=== PATIENT | male | born 1945 | race Caucasian/White ===

== ENCOUNTER 2022-02-08 12:58 | Emergency (ER) | payer OTHER ==
--- OUTSIDE RECORDS SUMMARY | 2022-02-08 13:01 | XMS REPORT | Continuity of Care Document ---
:1945 Author Organization [facility] t Address [address] [place] [id number] Care Team Providers Name Role Phone Elda ISBELL Attending Clinician Unavailable Lab, Fam Pob I Attending Clinician Unavailable Ebrapetra LÓPEZP Attending Clinician EBRAHIM Attending Clinician Unavailable Payers Payer Name Policy Type Policy Number Effective Date Expiration Date S rosa [facility] [id number] 2020 MEDICARE ADV HMO 00:00:00 [employer] MEDICARE ERS [id number] 2018 00:00:00 Problems This patient has no known problems. Allergies, Adverse Reactions, Alerts Allergy Allergy Status Severity Reaction(s) Onset Inactive Treating Comm ents Source Name Type Date Date Clinician NO KNOWN Drug Active Univers ALLERGIE Class ity of [facility] Social History Social Habit Start Date Stop Date Quantity Comments Source [facility] [place] [facility] Exposure to Yes [facility] SARS-CoV-2 [facility] (event) Branch Tobacco use and 2018-11-11 2018-11-11 Never used Universit y of exposure 00:00:00 00:00:00 [facility] Alcohol intake 2018-11-11 2018-11-11 Current University 00:00:00 00:00:00 non-drinker of [facility] alcohol Branch (finding) Smoking Status Start Date Stop Date Source Never smoker [facility] Medications Ordered Filled Start Stop Current Ordering Indication Dosage Frequency Signature Comments Components Source Medication Medication Date Date Medication? Clinician (SIG) Name Name losartan-hy Yes 1{tbl} Take 1 Un giuliana drochloroth 1-31 tablet by ity of iazide 16:12: mouth [place] 100-25 mg 47 daily. Medical per tablet Branch bisoprolol- Yes 1{tbl} Take 1 Un giuliana hydrochloro 1-31 tablet by ity of thiazide 16:12: mouth [place] 2.5-6.25 mg 47 daily. Medica l per tablet Branch pravastatin 2019-0 Yes 20mg Take 20 mg Univers 20 mg 1-31 by mouth ity of tablet 16:12: at [place] [address] bedtime. [facility] febuxostat 2019-0 Yes 40mg Take 40 mg U nivers 40 mg 1-31 by mouth ity of tablet 16:12: daily. [address] coenzyme 2019-0 Yes 100mg Take 100 Univ ers Q10 (CO 1-31 mg by ity of Q-10) 100 16:12: mouth. [facility] softgel [address] [place] [address] aspirin 81 2019-0 Yes 81mg Take 81 mg U nivers mg EC 1-31 by mouth ity of tablet 16:12: daily. [address] Procedures This patient has no known procedures. Encounters Start End Encounter Admission Attending Care Care Encounter Source Date/Time Date/Time Type Type Clinicians Facility Department ID 2020-11-27 2020-11-27 [id number] Univers 15:30:00 15:30:00 ESTHER [id number] [facility] 2020-11-27 2020-11-27 [facility] [id number] Univers 15:30:00 15:30:00 ESTHER [facility] 2020-11-05 2020-11-05 Outpatient Arthur ISBELL [facility] [id number] Univers 15:40:00 15:40:00 ESTHER [id number] [facility] 2020-11-05 2020-11-05 [facility] [id number] Univers 15:40:00 15:40:00 ESTHER [facility] 2020-08-25 2020-08-25 Laboratory Lab, Adc Fam Pob I [facility] [id number] Univers 08:04:20 08:24:20 Only Cristian [facility] [id number] ity [facility] [id number] Donald as Brittany [id number] Md dical [facility] [address] 2020-08-25 2020-08-25 Outpatient Arthur DAVIS [facility] [id number] Univers 08:00:00 08:00:00 LUDWIG babcock [facility] Results This patient has no known results.
[2022-02-08 14:34] LABS: Absolute Lymphocytes (CBC) 1.3 K/uL (0.7-4.9); Hematocrit 42.8 % (39.6-49.0); Lymphocytes % 16.3 % (15.3-44.8); MPV 9.6 fL (7.6-11.3); RBC Red Blood Cell Count 4.64 M/uL (4.33-5.43)
[2022-02-08 14:46] LABS: Potassium 3.7 mmol/L (3.5-5.1)
--- NOTE | 2022-02-08 15:56 | RAD REPORT ---
EXAM DESCRIPTION: CT - Head Brain Wo Cont - 02/08/2022 3:47 pm CLINICAL HISTORY: paresthesia right hand Headache, drowsiness, CVA symptomology COMPARISON: Head Brain Wo Cont dated 06/07/2017 TECHNIQUE: All CT scans are performed using dose optimization technique as appropriate and may inclu de automated exposure control or mA/KV adjustment according to patient size. FINDINGS: No intracranial hemorrhage, hydrocephalus or extra-axial fluid collection.No areas of brai n edema or evidence of midline shift. The paranasal sinuses and mastoids are clear. The calvarium is intact. IMPRESSION: No acute intracranial abnormality.
--- NOTE | 2022-02-08 15:59 | RAD REPORT ---
EXAM DESCRIPTION: CT - Head angio - 02/08/2022 3:47 pm CLINICAL HISTORY: Paresthesia right hand Headache, drowsiness COMPARISON: Head Brain Wo Cont dated 02/08/2022; Head Brain Wo Cont dated 06/07/2017 TECHNIQUE: CT angiography of the head was performed with MIPs. All CT scans are performed using dose optimization technique as appropriate and may include automated exposure control or mA/KV adjustment according to patient size. FINDINGS: No evidence of aneurysm is detected. No flow-limiting stenosis or vascular malformation id entified. Antegrade flow is seen in the vertebral arteries. The vertebral arteries are right-sided dominant. The visualized dural venous sinuses are patent. IMPRESSION: No significant flow abnormality is detected.
--- NOTE | 2022-02-08 17:30 | RAD REPORT ---
EXAM DESCRIPTION: MRI - Brain W/Wo Cont - 02/08/2022 5:16 pm CLINICAL HISTORY: numbness and tingling Headache, drowsiness, CVA symptomology COMPARISON: Head angio dated 02/08/2022 TECHNIQUE: Multi-sequence, multiplanar MR imaging of the brain was performed with contrast. FINDINGS: No intracranial hemorrhage, hydrocephalus, or extra-axial fluid collection. No edema or sh ift of midline structures. No intracranial mass. DWI is negative for acute CVA. The midline structures are normally formed. Mastoid air cells and paranasal sinuses are clear. Post-contrast images show no abnormal enhancement to suggest tumor or infection. IMPRESSION: Negative for acute CVA or other acute intracranial process. No pathologic post-contrast enhancement suspected.
--- NOTE | 2022-02-08 18:40 | EDPHYS ---
Physician Documentation [facility] Name: Darci Pitt Age: 76 yrs Sex: Male : 1945 Arrival Date: 02/08/2022 Time: 13:00 Bed 6 Private MD: ED Physician Franc Serrano HPI: 02/08 19:08 This 76 yrs old Male presents to ER via EMS with complaints of Numbness Of Arm. kdr 19:08 . kdr 19:10 Around 1230 today, the patient noted that his right hand was numb primarily his kdr fingertips. Also reported similar sensation in his toes on the right side however that seems to resolved prior to arrival. He has not had this before and does not appear acutely toxic in any way his speech and mentation are at baseline with his at bedside. Patient otherwise does not appear acutely toxic. Onset: The symptoms/episode began/occurred acutely, suddenly, just prior to arrival, this morning. Severity of symptoms: At their worst the symptoms were very mild in the emergency department the symptoms have resolved. The patient has not experienced similar symptoms in the past. The patient has not recently seen a physician. Historical: - Allergies: 13:02 NKDA; ab2 - PMHx: 13:02 Gout; Hypertension; Tachycardia; ab2 - Immunization history:: Adult Immunizations up to date. - Social history:: Smoking status: Patient denies any tobacco usage or history of. ROS: 19:10 Constitutional: Negative for fever, chills, and weight loss, Eyes: Negative for injury, kdr pain, redness, and discharge, ENT: Negative for injury, pain, and discharge, Neck: Negative for injury, pain, and swelling, Cardiovascular: Negative for chest pain, palpitations, and edema, Respiratory: Negative for shortness of breath, cough, wheezing, and pleuritic chest pain, Abdomen/GI: Negative for abdominal pain, nausea, vomiting, diarrhea, and constipation, Back: Negative for injury and pain, : Negative for injury, bleeding, discharge, and swelling, MS/Extremity: Negative for injury and deformity, Skin: Negative for injury, rash, and discoloration, Psych: Negative for depression, anxiety, suicide ideation, homicidal ideation, and hallucinations, Allergy/Immunology: Negative for hives, rash, and allergies, Endocrine: Negative for neck swelling, polydipsia, polyuria, polyphagia, and marked weight changes, Hematologic/Lymphatic: Negative for swollen nodes, abnormal bleeding, and unusual bruising. 19:10 Neuro: Positive for numbness, Negative for altered mental status, dizziness, gait disturbance, headache, hearing loss, loss of consciousness, seizure activity, speech changes, syncope, near syncope, tingling, tinnitus, tremor, visual changes, weakness, acute changes. Exam: 19:10 Constitutional: This is a well developed, well nourished patient who is awake, alert, kdr and in no acute distress. Head/Face: Normocephalic, atraumatic. Eyes: Pupils equal round and reactive to light, extra-ocular motions intact. Lids and lashes normal. Conjunctiva and sclera are non-icteric and not injected. Cornea within normal limits. Periorbital areas with no swelling, redness, or edema. Neck: Trachea midline, no thyromegaly or masses palpated, and no cervical lymphadenopathy. Supple, full range of motion without nuchal rigidity, or vertebral point tenderness. No Meningismus. Chest/axilla: Normal chest wall appearance and motion. Nontender with no deformity. No lesions are appreciated. Cardiovascular: Regular rate and rhythm with a normal S1 and S2. No gallops, murmurs, or rubs. Normal PMI, no JVD. No pulse deficits. Respiratory: Lungs have equal breath sounds bilaterally, clear to auscultation and percussion. No rales, rhonchi or wheezes noted. No increased work of breathing, no retractions or nasal flaring. Abdomen/GI: Soft, non-tender, with normal bowel sounds. No distension or tympany. No guarding or rebound. No evidence of tenderness throughout. Back: No spinal tenderness. No costovertebral tenderness. Full range of motion. Skin: Warm, dry with normal turgor. Normal color with no rashes, no lesions, and no evidence of cellulitis. MS/ Extremity: Pulses equal, no cyanosis. Neurovascular intact. Full, normal range of motion. Neuro: Awake and alert, GCS 15, oriented to person, place, time, and situation. Cranial nerves II-XII grossly intact. Motor strength 5/5 in all extremities. Sensory grossly intact. Cerebellar exam normal. Normal gait. Psych: Awake, alert, with orientation to person, place and time. Behavior, mood, and affect are within normal limits. Vital Signs: 13:00 BP 174 / 90; Pulse 62; Resp 17; Temp 98.7; Pulse Ox 99% on R/A; Weight 88.45 kg; Height ab2 5 ft. 10 in. (177.80 cm); 14:00 BP 153 / 84; Pulse 59; Resp 15 S; Pulse Ox 98% on R/A; jd3 14:49 BP 165 / 88; Pulse 60; Resp 17; Pulse Ox 99% on R/A; ab2 15:09 BP 137 / 78; Pulse 118; Resp 16 S; Pulse Ox 98% on R/A; jd3 15:56 BP 164 / 91; Pulse 67; Resp 16 S; Pulse Ox 98% on R/A; jd3 17:24 BP 166 / 96; Pulse 69; Resp 17; Pulse Ox 99% on R/A; Pain 0/10; ab2 18:00 BP 161 / 95; Pulse 74; Resp 18 S; Pulse Ox 98% on R/A; jd3 19:12 BP 165 / 99; Pulse 73; Resp 17; Pulse Ox 98% on R/A; ab2 13:00 Body Mass Index 27.98 (88.45 kg, 177.80 cm) ab2 NIH Stroke Scale Scores: 13:04 NIHSS Score: 0 ab2 MDM: 18:40 Patient medically screened. kdr 19:10 Data reviewed: vital signs, nurses notes, lab test result(s), radiologic studies. kdr Counseling: I had a detailed discussion with the patient and/or guardian regarding: the historical points, exam findings, and any diagnostic results supporting the discharge/admit diagnosis, lab results, radiology results, the need for outpatient follow up. 02/08 14:19 Order name: CBC with Diff; Complete Time: 17:24 kdr 02/08 14:19 Order name: Chem 7; Complete Time: 17:24 kdr 02/08 14:19 Order name: CT Head Angio; Complete Time: 17:24 kdr 02/08 14:19 Order name: CT Head Brain wo Cont; Complete Time: 17:24 kdr 02/08 15:38 Order name: Brain W/Wo Cont; Complete Time: 18:12 EDMS Administered Medications: No medications were administered Disposition Summary: 02/08/22 18:40 Discharge Ordered Location: Home kdr Problem: new kdr Symptoms: have improved kdr Condition: Stable kdr Diagnosis - Paresthesia of skin kdr Followup: kdr - With: Private Physician - When: 2 - 3 days - Reason: If symptoms return, Further diagnostic work-up, Recheck today's complaints, Continuance of care, Re-evaluation by your physician Discharge Instructions: - Discharge Summary Sheet kdr - Peripheral Neuropathy kdr - Paresthesia, [id number] kdr Forms: - Medication Reconciliation Form kdr - Thank You Letter kdr NIH Stroke Scale - NIH Stroke Score Date: 02/08/2022 Time: 13:04 Total Score = 0 1a. Level of Consciousness (LOC) - 0(Alert) 1b. Level of Consciousness (LOC) (Month \T\ Age) - 0(Both) 1c. LOC Commands (Open \T\ Closes Eyes/Lab Support Technician) - 0(Both) 2. Best Gaze (Lateral Gaze Paresis) - 0(Normal) 3. Visual Field Loss - 0(No visual loss) 4. Facial Palsy - 0(Normal) 5a. Left Arm: Motor (10-second hold) - 0(No drift) 5b. Right Arm: Motor (10-second hold) - 0(No drift) 6a. Left Leg: Motor (5-second hold - always test supine) - 0(No drift) 6b. Right Leg: Motor (5-second hold - always test supine) - 0(No drift) 7. Limb Ataxia (finger/nose \T\ heel/aug[place]in - test with eyes open) - 0(Absent) 8. Sensory Loss (pinprick arms/legs/face) - 0(Normal) 9. Best Language: Aphasia (description/naming/reading) - 0(No aphasia) 10. Dysarthria (speech clarity - read or repeat words) - 0(Normal) 11. Extinction and Inattention (visual/tactile/auditory/spatial/personal) - 0(No abnormality) Initials: ab2 Signatures: Dispatcher [employer] Franc Enriquez MD MD kdr Bernardino Vance2
--- NOTE | 2022-02-08 18:40 | ER ---
Nurse's Notes [facility] Name: Darci Pitt Age: 76 yrs Sex: Male : 1945 Arrival Date: 02/08/2022 Time: 13:00 Bed 6 Private MD: Diagnosis: Paresthesia of skin Presentation: 02/08 13:00 Chief complaint: Patient states: "around 1230 my right hand went numb and was ab2 tingling." Pt states this sensation has since resolved. Pt has no deficits noted. Coronavirus screen: Vaccine status: Patient reports receiving the 2nd dose of the covid vaccine. Client denies travel out of the [place] in the last 14 days. At this time, the client does not indicate any symptoms associated with coronavirus-19. Ebola Screen: Patient negative for fever greater than or equal to 101.5 degrees Fahrenheit, and additional compatible Ebola Virus Disease symptoms Patient denies exposure to infectious person. Patient denies travel to an Ebola-affected area in the 21 days before illness onset. No symptoms or risks identified at this time. Initial Sepsis Screen: Does the patient meet any 2 criteria? No. Patient's initial sepsis screen is negative. Does the patient have a suspected source of infection? No. Patient's initial sepsis screen is negative. Risk Assessment: Do you want to hurt yourself or someone else? Patient reports no desire to harm self or others. Onset of symptoms was February 08, 2022 at 12:30. 13:00 Method Of Arrival: EMS: [facility] ab2 13:00 Acuity: ROXIE 3 ab2 Historical: - Allergies: 13:02 NKDA; ab2 - PMHx: 13:02 Gout; Hypertension; Tachycardia; ab2 - Immunization history:: Adult Immunizations up to date. - Social history:: Smoking status: Patient denies any tobacco usage or history of. Screenin:04 Abuse screen: Denies threats or abuse. Denies injuries from another. Nutritional ab2 screening: No deficits noted. Tuberculosis screening: No symptoms or risk factors identified. Fall Risk None identified. Assessment: 13:02 General: Appears in no apparent distress. comfortable, Behavior is calm, cooperative, ab2 appropriate for age. Pain: Denies pain. Neuro: Reports numbness in right hand. Cardiovascular: No deficits noted. Denies chest pain, shortness of breath, Heart tones S1 S2 present Patient's skin is warm and dry. Respiratory: No deficits noted. Airway is patent Respiratory effort is even, unlabored, Respiratory pattern is regular, symmetrical, Breath sounds are clear bilaterally. GI: No deficits noted. No signs and/or symptoms were reported involving the gastrointestinal system. : No deficits noted. Derm: No signs and/or symptoms reported regarding the dermatologic system. Skin is intact, is healthy with good turgor, Skin is pink, warm \\T\\ dry. 13:03 Reassessment: Patient appears in no apparent distress at this time. No changes from ab2 previously documented assessment. Dr. Serrano notified of patients right hand numbness that has since resolve and I was directed to not call a stroke alert. 14:00 Reassessment: Patient appears in no apparent distress at this time. No changes from jd3 previously documented assessment. Patient and/or family updated on plan of care and expected duration. Pain level reassessed. Patient is alert, oriented x 3, equal unlabored respirations, skin warm/dry/pink. 15:08 Reassessment: Patient appears in no apparent distress at this time. Patient and/or jd3 family updated on plan of care and expected duration. Pain level reassessed. Patient is alert, oriented x 3, equal unlabored respirations, skin warm/dry/pink. awaiting results. 15:55 Reassessment: Patient appears in no apparent distress at this time. Patient and/or jd3 family updated on plan of care and expected duration. Pain level reassessed. Patient is alert, oriented x 3, equal unlabored respirations, skin warm/dry/pink. 17:24 Reassessment: Patient appears in no apparent distress at this time. Pt returned from ab2 MRI. Pt resting in bed at this time. at bedside. Pt denies any needs at this time. Vital signs remain stable at this time. 18:00 Reassessment: Patient appears in no apparent distress at this time. No changes from jd3 previously documented assessment. Patient and/or family updated on plan of care and expected duration. Pain level reassessed. Patient is alert, oriented x 3, equal unlabored respirations, skin warm/dry/pink. Vital Signs: 13:00 BP 174 / 90; Pulse 62; Resp 17; Temp 98.7; Pulse Ox 99% on R/A; Weight 88.45 kg; Height ab2 5 ft. 10 in. (177.80 cm); 14:00 BP 153 / 84; Pulse 59; Resp 15 S; Pulse Ox 98% on R/A; jd3 14:49 BP 165 / 88; Pulse 60; Resp 17; Pulse Ox 99% on R/A; ab2 15:09 BP 137 / 78; Pulse 118; Resp 16 S; Pulse Ox 98% on R/A; jd3 15:56 BP 164 / 91; Pulse 67; Resp 16 S; Pulse Ox 98% on R/A; jd3 17:24 BP 166 / 96; Pulse 69; Resp 17; Pulse Ox 99% on R/A; Pain 0/10; ab2 18:00 BP 161 / 95; Pulse 74; Resp 18 S; Pulse Ox 98% on R/A; jd3 19:12 BP 165 / 99; Pulse 73; Resp 17; Pulse Ox 98% on R/A; ab2 13:00 Body Mass Index 27.98 (88.45 kg, 177.80 cm) ab2 NIH Stroke Scale Scores: 13:04 NIHSS Score: 0 ab2 ED Course: 13:00 Patient arrived in ED. ab2 13:02 Triage completed. ab2 13:04 Arm band placed on right wrist. ab2 13:04 Patient has correct armband on for positive identification. Bed in low position. Side ab2 rails up X2. 13:05 Bernardino Vance is Primary Nurse. ab2 13:05 Maintain EMS IV. Dressing intact. Good blood return noted. Site clean \\T\\ dry. Gauge \\T\\ ab 2 site: 18 right forearm. 13:08 Franc Serrano MD is Attending Physician. kdr 14:27 Initial lab(s) drawn, by me, sent to lab. jd3 15:49 CT Head Angio In Process Unspecified. EDMS 15:49 CT Head Brain wo Cont In Process Unspecified. EDMS 17:17 Brain W/Wo Cont In Process Unspecified. EDMS 19:23 No provider procedures requiring assistance completed. IV discontinued, intact, iw bleeding controlled, No redness/swelling at site. Pressure dressing applied. Administered Medications: No medications were administered Outcome: 18:40 Discharge ordered by . kdr 19:23 Discharged to home via wheelchair, with family. iw 19:23 Condition: good 19:23 Discharge instructions given to patient, Instructed on discharge instructions, follow up and referral plans. Demonstrated understanding of instructions, follow-up care. 19:23 Patient left the ED. NIH Stroke Scale - NIH Stroke Score Date: 02/08/2022 Time: 13:04 Total Score = 0 1a. Level of Consciousness (LOC) - 0(Alert) 1b. Level of Consciousness (LOC) (Month \\T\\ Age) - 0(Both) 1c. LOC Commands (Open \\T\\ Closes Eyes/Bilingual Branch Manager) - 0(Both) 2. Best Gaze (Lateral Gaze Paresis) - 0(Normal) 3. Visual Field Loss - 0(No visual loss) 4. Facial Palsy - 0(Normal) 5a. Left Arm: Motor (10-second hold) - 0(No drift) 5b. Right Arm: Motor (10-second hold) - 0(No drift) 6a. Left Leg: Motor (5-second hold - always test supine) - 0(No drift) 6b. Right Leg: Motor (5-second hold - always test supine) - 0(No drift) 7. Limb Ataxia (finger/nose \\T\\ heel/augustin - test with eyes open) - 0(Absent) 8. Sensory Loss (pinprick arms/legs/face) - 0(Normal) 9. Best Language: Aphasia (description/naming/reading) - 0(No aphasia) 10. Dysarthria (speech clarity - read or repeat words) - 0(Normal) 11. Extinction and Inattention (visual/tactile/auditory/spatial/personal) - 0(No abnormality) Initials: ab2 Signatures: Dispatcher [employer] EDOH Franc Serrano MD MD kdr Caprice Manzo RN RN Raul Saldivar RN RN Bernardino Crespo ab2 Corrections: (The following items were deleted from the chart) 14:00 14:00 Reassessment: Patient appears in no apparent distress at this time. No jd3 changes from previously documented assessment. Patient and/or family updated on plan of care and expected duration. Pain level reassessed. Patient is alert, oriented x 3, equal unlabored respirations, skin warm/dry/pink. jd3
[2022-02-08 20:16] VITALS: TEMP 98.7
[2022-02-08 20:24] VITALS: O2SAT 98
[2022-02-08 20:25] VITALS: BP 165/99
[2022-02-08] MEDS ORDERED: NA CHLORIDE 0.9% 1,000 ML ONE (20:35)
[2022-02-08] MEDS ORDERED: ASPIRIN 81 MG CHEWABLE TABLET ONE (20:35)
[2022-02-08] MEDS ORDERED: ONDANSETRON 4 MG/2 ML VIAL ONE (20:35)
== END 2022-02-08 19:23 | disposition home or self-care (01) ==
LOC: ER 12:58
DX: R20.2 Paresthesia of skin (principal); I10 Essential (primary) hypertension
CPT/HCPCS: 85025; 80048; 36415; 70450; 70496; 70553; 99284; Q9967; A9577; J7030; J2405

== ENCOUNTER 2022-02-08 19:39 | Observation (INO) | payer OTHER ==
--- OUTSIDE RECORDS SUMMARY | 2022-02-08 19:41 | XMS REPORT | Continuity of Care Document ---
:1945 Author Organization [facility] t Address [address] [place] [id number] Care Team Providers Name Role Phone Elda ISBELL Attending Clinician Unavailable Lab, Fam Pob I Attending Clinician Unavailable Ebrapetra LÓPEZP Attending Clinician EBRAHIM Attending Clinician Unavailable Payers Payer Name Policy Type Policy Number Effective Date Expiration Date S rosa [facility] [id number] 2020 MEDICARE ADV HMO 00:00:00 [employer] MEDICARE ERS [id number] 2018 00:00:00 Problems This patient has no known problems. Allergies, Adverse Reactions, Alerts Allergy Allergy Status Severity Reaction(s) Onset Inactive Treating Comm ents Source Name Type Date Date Clinician NO KNOWN Drug Active Univers ALLERGIE Class ity of S [facility] Social History Social Habit Start Date Stop Date Quantity Comments [facility] Exposure to Yes [facility] SARS-CoV-2 [facility] (event) Branch Tobacco use and 2018-11-11 2018-11-11 Never used Universit y of exposure 00:00:00 00:00:00 [facility] Alcohol intake 2018-11-11 2018-11-11 Current University 00:00:00 00:00:00 non-drinker of [facility] alcohol Branch (finding) Smoking Status Start Date Stop Date Source Never smoker [facility] Medications Ordered Filled Start Stop Current Ordering [...] by mouth ity of tablet 16:12: at [place] [address] [address] [facility] febuxostat 2019-0 Yes 40mg Take 40 mg U nivers 40 mg 1-31 by mouth ity of tablet 16:12: daily. [address] coenzyme 2019-0 Yes 100mg Take 100 Univ ers Q10 (CO 1-31 mg by ity of Q-10) 100 16:12: mouth. [facility] softgel [address] [place] [address] aspirin 81 2019-0 Yes 81mg Take 81 mg U nivers mg EC 1-31 by mouth ity of tablet 16:12: daily. [address] Procedures This patient has no known procedures. Encounters Start End Encounter Admission Attending Care Care Encounter Source Date/Time Date/Time Type Type Clinicians Facility Department ID 2020-11-27 2020-11-27 [facility] [id number] Univers 15:30:00 15:30:00 ESTHER [id number] [facility] 2020-11-27 2020-11-27 [facility] [id number] Univers 15:30:00 15:30:00 ESTHER [facility] 2020-11-05 2020-11-05 Outpatient Arthur ISBELL [facility] [id number] Univers 15:40:00 15:40:00 ESTHER [id number] [facility] 2020-11-05 2020-11-05 [facility] [id number] Univers 15:40:00 15:40:00 ESTHER [facility] 2020-08-25 2020-08-25 Laboratory Lab, Adc Fam Pob I [facility] [id number] Univers 08:04:20 08:24:20 Only Cristian [facility] [id number] ity [facility] [id number] Donald as Brittany [id number] Co dical [facility] [address] 2020-08-25 2020-08-25 Outpatient Arthur DAVIS [facility] [id number] Univers 08:00:00 08:00:00 LUDWIG babcock [facility] Results This patient has no known results.
--- NOTE | 2022-02-08 20:34 | EDPHYS ---
Physician Documentation [facility] Name: Darci Pitt Age: 76 yrs Sex: Male : 1945 Arrival Date: 02/08/2022 Time: 19:40 Bed 14 Private MD: ED Physician Jaden Lara HPI: 02/08 20:28 This 76 yrs old Male presents to ER via Wheelchair with complaints of grayson Dizziness, Extreme thirst, tingling/numbness in upper ext. 20:28 The patient presents with dizziness, generalized weakness. Onset: The symptoms/episode grayson began/occurred just prior to arrival. Context: occurred on a street or driveway, occurred while the patient was walking. Modifying factors: The symptoms are alleviated by nothing, the symptoms are aggravated by nothing. Associated signs and symptoms: The patient has no apparent associated signs or symptoms. Severity of symptoms: At their worst the symptoms were mild in the emergency department the symptoms are unchanged. Patient's baseline: Neuro:. Historical: - Allergies: 19:45 NKDA; ab2 - PMHx: 19:45 Gout; Hypertension; Tachycardia; ab2 - Immunization history:: Adult Immunizations up to date. - Social history:: Smoking status: Patient denies any tobacco usage or history of. - Family history:: not pertinent. ROS: 20:28 Constitutional: Negative for fever, chills, and weight loss, Eyes: Negative for injury, grayson pain, redness, and discharge, ENT: Negative for injury, pain, and discharge, Neck: Negative for injury, pain, and swelling, Cardiovascular: Negative for chest pain, palpitations, and edema, Respiratory: Negative for shortness of breath, cough, wheezing, and pleuritic chest pain, Back: Negative for injury and pain, : Negative for injury, bleeding, discharge, and swelling, MS/Extremity: Negative for injury and deformity, Skin: Negative for injury, rash, and discoloration, Neuro: Negative for headache, weakness, numbness, tingling, and seizure, Psych: Negative for depression, anxiety, suicide ideation, homicidal ideation, and hallucinations, Allergy/Immunology: Negative for hives, rash, and allergies, Endocrine: Negative for neck swelling, polydipsia, polyuria, polyphagia, and marked weight changes. 20:28 Abdomen/GI: Positive for nausea and vomiting. 20:28 Neuro: Positive for tingling, weakness, of the right arm and right leg. Exam: 20:28 Constitutional: This is a well developed, well nourished patient who is awake, alert, grayson and in no acute distress. Head/Face: Normocephalic, atraumatic. Eyes: Pupils equal round and reactive to light, extra-ocular motions intact. Lids and lashes normal. Conjunctiva and sclera are non-icteric and not injected. Cornea within normal limits. Periorbital areas with no swelling, redness, or edema. ENT: Nares patent. No nasal discharge, no septal abnormalities noted. Tympanic membranes are normal and external auditory canals are clear. Oropharynx with no redness, swelling, or masses, exudates, or evidence of obstruction, uvula midline. Mucous membranes moist. Neck: Trachea midline, no thyromegaly or masses palpated, and no cervical lymphadenopathy. Supple, full range of motion without nuchal rigidity, or vertebral point tenderness. No Meningismus. Chest/axilla: Normal chest wall appearance and motion. Nontender with no deformity. No lesions are appreciated. Cardiovascular: Regular rate and rhythm with a normal S1 and S2. No gallops, murmurs, or rubs. Normal PMI, no JVD. No pulse deficits. Respiratory: Lungs have equal breath sounds bilaterally, clear to auscultation and percussion. No rales, rhonchi or wheezes noted. No increased work of breathing, no retractions or nasal flaring. Abdomen/GI: Soft, non-tender, with normal bowel sounds. No distension or tympany. No guarding or rebound. No evidence of tenderness throughout. Back: No spinal tenderness. No costovertebral tenderness. Full range of motion. Male : Normal genitalia with no discharge or lesions. Skin: Warm, dry with normal turgor. Normal color with no rashes, no lesions, and no evidence of cellulitis. MS/ Extremity: Pulses equal, no cyanosis. Neurovascular intact. Full, normal range of motion. Neuro: Awake and alert, GCS 15, oriented to person, place, time, and situation. Cranial nerves II-XII grossly intact. Motor strength 5/5 in all extremities. Sensory grossly intact. Cerebellar exam normal. Normal gait. Psych: Awake, alert, with orientation to person, place and time. Behavior, mood, and affect are within normal limits. Vital Signs: 19:43 BP 149 / 101; Pulse 83; Resp 18; Temp 97.7; Pulse Ox 99% on R/A; Weight 88.45 kg; ab2 Height 5 ft. 10 in. (177.80 cm); Pain 0/10; 19:43 Body Mass Index 27.98 (88.45 kg, 177.80 cm) ab2 NIH Stroke Scale Scores: 19:46 NIHSS Score: 0 ab2 20:31 NIHSS Score: 0 grayson Luis Enrique Coma Score: 19:46 Eye Response: spontaneous(4). Verbal Response: oriented(5). Motor Response: obeys ab2 commands(6). Total: 15. MDM: 20:22 Patient medically screened. [facility] 20:31 Differential diagnosis: cardiac arrhythmia, CVA, generalized weakness, hypovolemia, grayson idiopathic dizziness, near-syncope, sepsis, TIA. Data reviewed: vital signs, nurses notes, lab test result(s), EKG, radiologic studies, CT scan, MRI, plain films. Data interpreted: monitor technician: rate is 83 beats/min, rhythm is regular, Pulse oximetry: on room air is 99 %. Test interpretation: by ED physician or midlevel provider: ECG, plain radiologic studies. Counseling: I had a detailed discussion with the patient and/or guardian regarding: the historical points, exam findings, and any diagnostic results supporting the discharge/admit diagnosis, lab results, radiology results, the need for further work-up and treatment in the hospital. 02/08 20:28 Order name: Basic Metabolic Panel; Complete Time: 22:33 [facility] 02/08 20:28 Order name: CBC with Diff; Complete Time: 21:47 [facility] 02/08 20:28 Order name: LFT's; Complete Time: 22:33 [facility] 02/08 20:28 Order name: Magnesium; Complete Time: 22:33 [facility] 02/08 20:28 Order name: NT PRO-BNP; Complete Time: 22:33 [facility] 02/08 20:28 Order name: Troponin HS; Complete Time: 22:33 [facility] 02/08 20:28 Order name: XRAY Chest (1 view); Complete Time: 21:47 [facility] 02/08 20:28 Order name: EKG; Complete Time: 20:28 [facility] 02/08 20:28 Order name: Cardiac monitoring; Complete Time: 21:45 [facility] 02/08 20:31 Order name: COVID-19 SARS RT PCR (Document "Date of Onset" if Symptomatic); Complete la1 Time: 22:33 02/08 20:33 Order name: Carotid Artery Bilateral US; Complete Time: 21:47 la1 02/08 20:28 Order name: EKG - Nurse/Tech; Complete Time: 21:45 [facility] 02/08 20:28 Order name: IV Saline Lock; Complete Time: 21:30 [facility] 02/08 20:28 Order name: Labs collected and sent; Complete Time: 21:30 [facility] 02/08 20:28 Order name: O2 Per Protocol; Complete Time: 21:30 [facility] 02/08 20:28 Order name: O2 Sat Monitoring; Complete Time: 21:30 [facility] Administered Medications: 20:46 Drug: Aspirin Chewable Tablet 81 mg Route: PO; 1 02/09 00:37 Follow up: Response: No adverse reaction formerly [facility] 02/08 21:30 Drug: Zofran (Ondansetron) 4 mg Route: IVP; Site: left antecubital; ke1 22:00 Follow up: Response: Marked relief of symptoms ke1 21:45 Drug: NS 0.9% 1000 ml Route: IV; Rate: 1 bolus; Site: left antecubital; ke1 22:45 Follow up: IV Status: Completed infusion ke1 Disposition Summary: 02/08/22 20:33 Hospitalization Ordered Hospitalization Status: Observation grayson Provider: Apolinar Estes cha Location: Telemetry/MedSurg (observation) grayson Condition: Fair grayson Problem: new grayson Symptoms: have improved grayson Bed/Room Type: Standard [facility] Room Assignment: 209(02/08/22 22:25) cg Diagnosis - Weakness grayson - Vomiting grayson Forms: - Medication Reconciliation Form grayson - SBAR form grayson NIH Stroke Scale - NIH Stroke Score Date: 02/08/2022 Time: 19:46 Total Score = 0 1a. Level of Consciousness (LOC) - 0(Alert) 1b. Level of Consciousness (LOC) (Month \\T\\ Age) - 0(Both) 1c. LOC Commands (Open \\T\\ Closes Eyes/Checkerer Hand) - 0(Both) 2. Best Gaze (Lateral Gaze Paresis) - 0(Normal) 3. Visual Field Loss - 0(No visual loss) 4. Facial Palsy - 0(Normal) 5a. Left Arm: Motor (10-second hold) - 0(No drift) 5b. Right Arm: Motor (10-second hold) - 0(No drift) 6a. Left Leg: Motor (5-second hold - always test supine) - 0(No drift) 6b. Right Leg: Motor (5-second hold - always test supine) - 0(No drift) 7. Limb Ataxia (finger/nose \\T\\ heel/augustin - test with eyes open) - 0(Absent) 8. Sensory Loss (pinprick arms/legs/face) - 0(Normal) 9. Best Language: Aphasia (description/naming/reading) - 0(No aphasia) 10. Dysarthria (speech clarity - read or repeat words) - 0(Normal) 11. Extinction and Inattention (visual/tactile/auditory/spatial/personal) - 0(No abnormality) Initials: ab2 NIH Stroke Scale - NIH Stroke Score Date: 02/08/2022 Time: 20:31 Total Score = 0 1a. Level of Consciousness (LOC) - 0(Alert) 1b. Level of Consciousness (LOC) (Month \\T\\ Age) - 0(Both) 1c. LOC Commands (Open \\T\\ Closes Eyes/Checkerer Hand) - 0(Both) 2. Best Gaze (Lateral Gaze Paresis) - 0(Normal) 3. Visual Field Loss - 0(No visual loss) 4. Facial Palsy - 0(Normal) 5a. Left Arm: Motor (10-second hold) - 0(No drift) 5b. Right Arm: Motor (10-second hold) - 0(No drift) 6a. Left Leg: Motor (5-second hold - always test supine) - 0(No drift) 6b. Right Leg: Motor (5-second hold - always test supine) - 0(No drift) 7. Limb Ataxia (finger/nose \\T\\ heel/augustin - test with eyes open) - 0(Absent) 8. Sensory Loss (pinprick arms/legs/face) - 0(Normal) 9. Best Language: Aphasia (description/naming/reading) - 0(No aphasia) 10. Dysarthria (speech clarity - read or repeat words) - 0(Normal) 11. Extinction and Inattention (visual/tactile/auditory/spatial/personal) - 0(No abnormality) Initials: grayson Signatures: Dispatcher [employer] Jaden Means MD MD cha Attema, Lee, NURSE LICENSED PRACTICAL-C NURSE LICENSED PRACTICAL-Cla1 Jonelle Miner, RN RN cg Bernardino Vance Kouassi RN RN ke1 Corrections: (The following items were deleted from the chart) 22:25 20:33 grayson cg
--- NOTE | 2022-02-08 20:34 | ER ---
Nurse's Notes [facility] Name: Darci Pitt Age: 76 yrs Sex: Male : 1945 Arrival Date: 02/08/2022 Time: 19:40 Bed 14 Private MD: Diagnosis: Weakness;Vomiting Presentation: 02/08 19:43 Chief complaint: Patient states: "I just left here and nothing has changed. I am still ab2 nauseated, vomiting and I have tingling in my right hand still. My mouth feel like cotton." Pt denies pain. Coronavirus screen: Vaccine status: Patient reports receiving the 2nd dose of the covid vaccine. Client denies travel out of the [place] in the last 14 days. At this time, the client does not indicate any symptoms associated with coronavirus-19. Ebola Screen: Patient negative for fever greater than or equal to 101.5 degrees Fahrenheit, and additional compatible Ebola Virus Disease symptoms Patient denies exposure to infectious person. Patient denies travel to an Ebola-affected area in the 21 days before illness onset. No symptoms or risks identified at this time. Initial Sepsis Screen: Does the patient meet any 2 criteria? No. Patient's initial sepsis screen is negative. Does the patient have a suspected source of infection? No. Patient's initial sepsis screen is negative. Risk Assessment: Do you want to hurt yourself or someone else? Patient reports no desire to harm self or others. Onset of symptoms is unknown. 19:43 Method Of Arrival: Wheelchair ab2 19:43 Acuity: ROXIE 3 ab2 Triage Assessment: 19:45 General: Appears in no apparent distress. uncomfortable, Behavior is calm, cooperative, ab2 appropriate for age. Pain: Denies pain. Neuro: Level of Consciousness is awake, alert, obeys commands, Oriented to person, place, time, situation, Appropriate for age Software Integration Developer are equal bilaterally Moves all extremities. Gait is steady. Cardiovascular: Reports nausea, Patient's skin is warm and dry. Respiratory: Airway is patent Respiratory effort is even, unlabored, Respiratory pattern is regular, symmetrical. GI: Reports nausea, vomiting. Derm: No deficits noted. Historical: - Allergies: 19:45 NKDA; ab2 - PMHx: 19:45 Gout; Hypertension; Tachycardia; ab2 - Immunization history:: Adult Immunizations up to date. - Social history:: Smoking status: Patient denies any tobacco usage or history of. - Family history:: not pertinent. Screenin:45 Abuse screen: Denies threats or abuse. Nutritional screening: No deficits noted. ke1 Tuberculosis screening: No symptoms or risk factors identified. Fall Risk No fall in past 12 months (0 pts). No secondary diagnosis (0 pts). IV access (20 points). Ambulatory Aid- None/Bed Rest/Nurse Assist (0 pts). Gait- Normal/Bed Rest/Wheelchair (0 pts) Mental Status- Oriented to own ability (0 pts). Total Delaney Fall Scale indicates No Risk (0-24 pts). Assessment: 20:01 Neuro: Reports Tingling on right hand. ke1 21:43 Reassessment: [facility] : [phone]/ cell: [id number]. ke1 23:46 Reassessment: Called med surg for report, nurse ask to call back in 10 mn. ke1 Vital Signs: 19:43 BP 149 / 101; Pulse 83; Resp 18; Temp 97.7; Pulse Ox 99% on R/A; Weight 88.45 kg; ab2 Height 5 ft. 10 in. (177.80 cm); Pain 0/10; 19:43 Body Mass Index 27.98 (88.45 kg, 177.80 cm) ab2 Luis Enrique Coma Score: 19:46 Eye Response: spontaneous(4). Verbal Response: oriented(5). Motor Response: obeys ab2 commands(6). Total: 15. NIH Stroke Scale Scores: 19:46 NIHSS Score: 0 ab2 20:31 NIHSS Score: 0 [facility] ED Course: 19:40 Patient arrived in ED. jj6 19:45 Triage completed. ab2 19:47 Arm band placed on right wrist. ab2 20:00 Brea De Guzman RN is Primary Nurse. ke1 20:22 Jaden Lara MD is Attending Physician. [facility] 20:32 Apolinar Estes MD is Hospitalizing Provider. grayson 21:13 XRAY Chest (1 view) In Process Unspecified. EDMS 21:29 Inserted saline lock: 20 gauge in left antecubital area, using aseptic technique. ke1 21:37 Carotid Artery Bilateral US In Process Unspecified. EDMS 21:46 Call light in reach. Side rails up X 1. [facility] 02/09 00:38 No provider procedures requiring assistance completed. Patient admitted, IV remains in [facility] place. Administered Medications: 02/08 20:46 Drug: Aspirin Chewable Tablet 81 mg Route: PO; [facility] 02/09 00:37 Follow up: Response: No adverse reaction [facility] 02/08 21:30 Drug: Zofran (Ondansetron) 4 mg Route: IVP; Site: left antecubital; ke 22:00 Follow up: Response: Marked relief of symptoms [facility] 21:45 Drug: NS 0.9% 1000 ml Route: IV; Rate: 1 bolus; Site: left antecubital; 1 22:45 Follow up: IV Status: Completed infusion [facility] Outcome: 20:33 Decision to Hospitalize by Provider. [facility] 02/09 00:38 Admitted to Med/surg accompanied by tech. [facility] Condition: stable Instructed on the need for admit. 00:39 Patient left the ED. [facility] NIH Stroke Scale - NIH Stroke Score Date: 02/08/2022 Time: 19:46 Total Score = 0 1a. Level of Consciousness (LOC) - 0(Alert) 1b. Level of Consciousness (LOC) (Month \\T\\ Age) - 0(Both) 1c. LOC Commands (Open \\T\\ Closes Eyes/Review Appraiser) - 0(Both) 2. Best Gaze (Lateral Gaze Paresis) - 0(Normal) 3. Visual Field Loss - 0(No visual loss) 4. Facial Palsy - 0(Normal) 5a. Left Arm: Motor (10-second hold) - 0(No drift) 5b. Right Arm: Motor (10-second hold) - 0(No drift) 6a. Left Leg: Motor (5-second hold - always test supine) - 0(No drift) 6b. Right Leg: Motor (5-second hold - always test supine) - 0(No drift) 7. Limb Ataxia (finger/nose \\T\\ heel/augustin - test with eyes open) - 0(Absent) 8. Sensory Loss (pinprick arms/legs/face) - 0(Normal) 9. Best Language: Aphasia (description/naming/reading) - 0(No aphasia) 10. Dysarthria (speech clarity - read or repeat words) - 0(Normal) 11. Extinction and Inattention (visual/tactile/auditory/spatial/personal) - 0(No abnormality) Initials: 2 NIH Stroke Scale - NIH Stroke Score Date: 02/08/2022 Time: 20:31 Total Score = 0 1a. Level of Consciousness (LOC) - 0(Alert) 1b. Level of Consciousness (LOC) (Month \\T\\ Age) - 0(Both) 1c. LOC Commands (Open \\T\\ Closes Eyes/Review Appraiser) - 0(Both) 2. Best Gaze (Lateral Gaze Paresis) - 0(Normal) 3. Visual Field Loss - 0(No visual loss) 4. Facial Palsy - 0(Normal) 5a. Left Arm: Motor (10-second hold) - 0(No drift) 5b. Right Arm: Motor (10-second hold) - 0(No drift) 6a. Left Leg: Motor (5-second hold - always test supine) - 0(No drift) 6b. Right Leg: Motor (5-second hold - always test supine) - 0(No drift) 7. Limb Ataxia (finger/nose \\T\\ heel/augustin - test with eyes open) - 0(Absent) 8. Sensory Loss (pinprick arms/legs/face) - 0(Normal) 9. Best Language: Aphasia (description/naming/reading) - 0(No aphasia) 10. Dysarthria (speech clarity - read or repeat words) - 0(Normal) 11. Extinction and Inattention (visual/tactile/auditory/spatial/personal) - 0(No abnormality) Initials: grayson Signatures: Dispatcher [employer] EDPA Jaden Lara MD MD cha Jeffries, Jennifer jj6 Bleininger, Alexis ab2 Ebrottie, Kouassi RN RN ke1 Corrections: (The following items were deleted from the chart) 02/08 19:46 19:43 Chief complaint: Patient states: "I just left here and nothing has ab2 changed. I am still nauseated, vomiting and I have tingling in my right hand still." ab2 21:30 21:29 Inserted saline lock: 20 gauge in left ke1 ke1
--- NOTE | 2022-02-08 21:20 | RAD REPORT ---
EXAM DESCRIPTION: RAD - Chest Single View - 02/08/2022 9:11 pm CLINICAL HISTORY: COUGH Chest pain. COMPARISON: Chest Single View dated 06/07/2017 FINDINGS: Portable technique limits examination quality. The lungs are grossly clear. The heart is mildly prominent in size. Tortuous thoracic aorta. No displ aced fractures. IMPRESSION: No acute intrathoracic process suspected.
[2022-02-08 21:36] LABS: Absolute Lymphocytes (CBC) 1.2 K/uL (0.7-4.9); Hematocrit 44.8 % (39.6-49.0); Lymphocytes % 12.5 % (15.3-44.8); MPV 9.7 fL (7.6-11.3); RBC Red Blood Cell Count 4.87 M/uL (4.33-5.43)
--- NOTE | 2022-02-08 21:45 | RAD REPORT ---
EXAM DESCRIPTION: US - CP - 02/08/2022 9:36 pm CLINICAL HISTORY: NUMBNESS Headache, drowsiness COMPARISON: Carotid Artery Bilateral dated 06/07/2017 TECHNIQUE: Real-time sonographic evaluation of both carotid systems was performed. Doppler interroga tion was performed with waveform tracing bilaterally. FINDINGS: Normal high resistance waveforms are noted in both external carotid arteries. The common c arotid arteries and internal carotid arteries show normal low resistance waveforms. Mild hard plaque is present in both carotid bulbs. Peak systolic and end diastolic velocity values an d the ICA/CCA ratios are in the non-hemodynamically significant range. Antegrade flow seen in both vertebral arteries. IMPRESSION: Mild hard plaque is seen in both carotid bulbs. No evidence of a hemodynamically significant stenosis.
[2022-02-08 21:58] LABS: Albumin 3.9 g/dL (3.4-5.0); Bilirubin Direct 0.3 mg/dL (0-0.2); Bilirubin Total 1.4 mg/dL (0.2-1.0); Magnesium 2.1 mg/dL (1.8-2.4); Potassium 3.8 mmol/L (3.5-5.1); Protein, Total 7.2 g/dL (6.4-8.2); Troponin High Sensitivity 4.8 pg/mL (<58.9)
--- NOTE | 2022-02-08 22:08 | P.HP ---
Certification for Inpatient Patient admitted to: Observation With expected LOS: <2 Midnights Patient will require the following post-hospital care: None Practitioner: I am a practitioner with admitting privileges, knowledge of patient current condition, hospital course, and medical plan of care. Services: Services provided to patient in accordance with Admission requirements found in Title 42 Section 412.3 of the Code of Federal Regulations Patient History Date of Service: 02/08/22 Primary Care Provider: Dr. Novak Reason for admission: Paresthesias, dizziness History of Present Illness: 76-year-old male with history of hypertension, gout presents to the emergency department for numbness/tingling of the right upper and lower extremity. Patient reports that his symptoms began around 1230 describes tingling of the fingertips and his right toes, he does report that the numbness/tingling did extend up his right forearm during part of the day. Patient was initially evaluated in the emergency department with CT without contrast of the head which was negative for any acute findings he then had CTA of the head with no significant flow abnormalities he also had MRI/MRA of the head which was negative for acute CVA or other acute intracranial process no pathologic postcontrast enhancement suspected, chest x-ray was obtained which was negative carotid Doppler with mild hard plaque in both carotid bulbs no evidence of hemodynamic significant stenosis. Patient was also complaining of a bit of dizziness at the time he was discharged to follow-up with neurology on outpatient basis, patient reports after getting to his vehicle he got suddenly very nauseous, vomited became diaphoretic and had worsening of the tingling in the right hand especially but also the right foot. Patient came back to the emergency department was reevaluated by the ED provider who requests observation overnight as his symptoms appear to be intermittent/waxing/waning. At this time patient is still experiencing mild paresthesias to the right fingers, toes and reports intermittent dizziness. Allergies No Known Dr Allergy (Uncoded 06/07/17 14:16) Unknown - Past Medical/Surgical History -: Hypertension -: Gout -: Vertigo -: Multiple eye surgeries -: Cholecystectomy -: Hernia repairs Psychosocial/ Personal History: Patient lives at home with his - Family History Mother -: Heart disease Father -: Cancer - Social History Smoking Status: Never smoker Alcohol use: No CD- Drugs: No Caffeine use: Yes Place of Residence: Home Review of Systems 10-point ROS is otherwise unremarkable Gastrointestinal: Nausea, Vomiting Neurological: Other (Dizziness, paresthesias) Physical Examination - Physical Exam General: Alert, In no apparent distress, Oriented x3 HEENT: Atraumatic, PERRLA, Mucous membr. moist/pink, EOMI, Sclerae nonicteric Neck: Supple, 2+ carotid pulse no bruit, No LAD, Without JVD or thyroid abnormality Respiratory: Clear to auscultation bilaterally, Normal air movement Cardiovascular: Regular rate/rhythm, Normal S1 S2 Gastrointestinal: Normal bowel sounds, No tenderness Musculoskeletal: No tenderness Integumentary: No rashes Neurological: Normal speech, Normal strength at 5/5 x4 extr, Normal tone, Normal affect - Studies Laboratory Data (last 24 hrs) 02/08/22 21:22: WBC 9.5 D, Hgb 15.7, Hct 44.8, Plt Count 165 02/08/22 21:22: Sodium 138, Potassium 3.8, BUN 14, Creatinine 1.08, Glucose 113 H, Magnesium 2.1, Total Bilirubin 1.4 H, AST 17, ALT 28, Alkaline Phosphatase 88 Assessment and Plan - Plan Assessment: Paresthesias of the right upper and lower extremities/dizziness Hypertension Plan: Paresthesias of the right upper and lower extremities/dizziness: CT head without, CT angio of the head, MRI/MRA of the head, carotid Doppler all negative for acute findings. Patient reports the dizziness has improved still has paresthesias to the fingers and toes on the right side. His nausea has also improved we will observe overnight initiate aspirin, folic acid, statin therapy. Obtain lipid panel in the morning consult neurology for additional recommendations. Will also perform neurochecks while patient is hospitalized. Hypertension: Obtain and continue home medication DVT PPX: Lovenox Code status: Full Discharge Plan: Home Plan to discharge in: 24 Hours - Advance Directives Does patient have a Living Will: No Does patient have a Durable POA for Healthcare: No - Code Status/Comfort Care Code Status Assessed: Yes (Full code) Critical Care: No Time Spent Managing Pts Care (In Minutes): 55
[2022-02-08] MEDS ORDERED: ONDANSETRON 4 MG/2 ML VIAL IV PRN (23:54)
[2022-02-09 00:06] VITALS: BMI 27.9
[2022-02-09 04:36] LABS: Absolute Lymphocytes (CBC) 1.8 K/uL (0.7-4.9); Hematocrit 42.4 % (39.6-49.0); Lymphocytes % 19.7 % (15.3-44.8); MPV 10.2 fL (7.6-11.3); RBC Red Blood Cell Count 4.52 M/uL (4.33-5.43)
[2022-02-09 04:55] LABS: Albumin 3.4 g/dL (3.4-5.0); Bilirubin Total 1.4 mg/dL (0.2-1.0); Potassium 3.8 mmol/L (3.5-5.1); Protein, Total 6.4 g/dL (6.4-8.2)
[2022-02-09] MEDS: ASPIRIN EC 81 MG TAB PO SCH (07:47)
[2022-02-09] MEDS: ENOXAPARIN 40 MG/0.4 ML SQ SCH (07:47)
[2022-02-09] MEDS: FOLIC ACID 1 MG TABLET PO SCH (07:49)
[2022-02-09] MEDS ORDERED: POTASSIUM CL SA 10 MEQ TAB PO ONE (09:00)
[2022-02-09 12:41] LABS: Urine Appearance Clear (Clear); Urine Bilirubin Negative (Negative); Urine Blood Trace-intact (Negative); Urine Color Yellow (Yellow); Urine Glucose Negative (Negative); Urine Protein Negative (Negative); Urine Specific Gravity 1.025 (1.005-1.030); Urine Urobilinogen 0.2 mg/dL (0.2-1.0)
[2022-02-09 13:14] LABS: Urine Microscopic Reflex ORDER UMIC
[2022-02-09 13:20] LABS: Urine Bacteria <20 /HPF (NONE SEEN); Urine Mucus 2+ /HPF (NONE SEEN); Urine RBC <5 /HPF (NONE SEEN)
--- NOTE | 2022-02-09 14:21 | P.PN ---
Date of Service: 02/09/22 Subjective: no acute events still feels tingling in fingers, waxes/wanes to involve hand no longer tingling in face tingling in R toes as well ROS: 10 point ROS as noted above, otherwise negative Physical exam GEN: Alert, oriented, NAD HEENT: Normal conjunctiva, sclera anicteric, left ptosis CV: Regular rate and rhythm, no edema Pulm: Nonlabored respirations on room air ABD: Soft, nontender, nondistended Neuro: str 5/5 upper/lower extremity, CN II-XII grossly intact Problem List Paresthesias of the right upper and lower extremities/dizziness vertigo Hypertension h/o multiple left eye procedures CT head, angio, MRI all negative carotid negative possibly two things going on dizziness /vertigo seems to be positional possible peripheral nerve issue / c spine for paresthesias MRI c spine ordered neuro consulted, recommended scopolamine patch PT consulted still having significant vertigo with movement VTE: lovenox Code: full Dispo: home, likely tomorrow, pending further improvement of symptoms Time Spent Managing Pts Care (In Minutes): 35
[2022-02-09] MEDS ORDERED: SCOPOLAMINE HYDROBROMIDE PATCH TD SCH (15:00)
--- NOTE | 2022-02-09 15:31 | RAD REPORT ---
EXAM DESCRIPTION: MRI - C Spine Wo Cont - 02/09/2022 3:19 pm CLINICAL HISTORY: R finger paresthesias COMPARISON: No comparisons TECHNIQUE: Sagittal T1-weighted, T2-weighted and T2-STIR sequences were obtained as well as T2 medic sequence. FINDINGS: Cervical vertebral bodies are normal in height and alignment. No suspicious marrow edema o r marrow replacing process. No paraspinal mass. Cerebellar tonsils and mid-line skull base show no suspicious finding. No significant finding at the C1 and C2 levels. C2-3 level: No significant findings. C3-4 level: No significant findings. C4-5 level: Midline disc bulge partially attenuates the anterior subarachnoid space slightly flatteni ng the anterior cord contour. Midline canal diameter is 9 mm. No significant foraminal encroachment. C5-6 level: Disc bulge and endplate spurring changes attenuate the anterior subarachnoid space. Midli ne canal is 9 mm. Bilateral bony foraminal encroachment causes significant bilateral foraminal stenos is. C6-7 level: No significant findings. C7-T1 level: No significant findings. No cord signal abnormality. IMPRESSION: Prominent C5-6 cervical spondylosis changes causing mild central spinal stenosis to 9 mm with significant bilateral bony foraminal stenosis. C4-5 spondylosis causes borderline to mild central spinal stenosis.
[2022-02-09] MEDS ORDERED: ATORVASTATIN 40 MG TAB PO SCH (21:00)
--- NOTE | 2022-02-10 01:25 | CON ---
Reason For Consultation: Consultation called because of vertigo and paresthesias with tingling in th e right upper extremity, much more than right lower extremity. History Of Present Illness: Mr. Pitt is a 76-year-old patient with hypertension, gout, who has a many year history of at least 5 episodes of severe positional vertigo with nausea, vomiting, and the inability to stand and ambulate. He came to [facility] with such symptoms on the first, whi ch was yesterday and was seen in the emergency room. At that point, the patient was unable to stand and ambulate because of the significant vertigo with nausea. His workup included a head CT scan with and without contrast that was negative for any acute findings. CT angiogram of head and neck also u nremarkable. Subsequent brain MRI of his head with MRA of his head and neck, negative for any acute ischemic or hemorrhagic events. Doppler study of the carotids showed mild hard plaque within the bul b, but no evidence of hemodynamically significant stenosis. Echocardiogram was unremarkable. The jesika gupta subsequently had MRI of the cervical spine, which identified prominent C5-C6 cervical spondylos is changes causing mild central canal stenosis to 9 mm with significant bilateral foraminal stenosis at the level of C5-C6. There was also mild central spinal stenosis at C4-C5. In terms of his blood work, complete blood count with differential was normal. Chemistries essentially unremarkable. Live r function studies normal. LDL cholesterol 91, HDL 44. Urinalysis showed a trace of blood, otherwis e unremarkable except for 1+ ketones. COVID-19 test was negative. Chest x-ray showed no acute intra thoracic processes. Past Medical History: Includes gout and vertigo as mentioned. Past Surgical History: Multiple eye surgeries, cholecystectomy, hernia repair. Allergies: NO KNOWN DRUG ALLERGIES. Social History: The patient lives at home with his . No alcohol or tobacco use. No drug use. Family History: Heart disease in mother and cancer in father. Medications: Aspirin 81 mg daily, Lipitor 40 mg at bedtime, Lovenox 40 mg subcutaneous daily, folic acid 1 mg daily. He has a scopolamine patch started today and Zofran as needed. Review of Systems: Aside from mentioned where he has vertigo with nausea and vomiting, he has no recent fevers, chills, myalgias, arthralgias, rash, headache, weight change, psychiatric complaints, gastrointestinal issues other than mentioned above or genitourinary issues. Physical Examination: Vital Signs: Blood pressure 154/82, pulse 58, respiratory rate 16, temperature 98.1, O2 saturation 9 4%-98% on room air. Weight 194 pounds, height 5 feet 10 inches, BMI 28. General: Mr. Pitt is resting comfortably. He is in no acute distress. HEENT: He is normocephalic, atraumatic. Sclerae anicteric. Oropharynx is pink and moist. Neck: Supple. Chest: Clear. Heart: Regular. Extremities: Show no clubbing, cyanosis, or edema. Neurologic: He is alert and oriented to person, place, and situation. He has no expressive or administrative receptionist tive aphasias. Cranial nerves 2 through 12 intact by exam. On motor examination, in the upper and l ower extremities 5/5 proximally and distally. Sensory exam intact to light touch and temperature in upper and lower extremities. Coordination intact in upper and lower extremities. Reflexes 1+ in upp er and lower extremities. He has not had the scopolamine patch attached yet and he still has some ve rtigo, room spinning around his head when trying to go from a lying to seated position. The patient has not had the Lashaun maneuver while hospitalized, that may be done with Physical Therapy. Assessment: Mr. Pitt is a 76-year-old patient with a history of benign paroxysmal positional vert igo, at least 5 episodes in perhaps 20 years. He does have cervical spondylosis with bilateral C5-C6 nerve root compression, likely the cause of his tingling, which he did actually complain of in the r ight upper extremity. It moved from the right forearm to the hand and back up to the elbow, however, it is mostly on the right side and not on the left. He will benefit from cervical traction and appl ication of KT tape at the right shoulder and arm and forearm as appropriate. Plan: 1.KT tape and cervical traction as noted. 2.Consider gabapentin 100 mg twice daily. 3.Scopolamine patch every 72 hours at least for the next week to 10 days. 4.The patient may have the Lashaun maneuver performed to help treat his acute vertigo. 5.After discharge, he should follow up with Dr. Parish in clinic 1 month later. FISH/CORY Voice ID: [id number] Report ID: [id number]
[2022-02-10 04:55] LABS: Potassium 3.7 mmol/L (3.5-5.1)
[2022-02-10] MEDS: FOLIC ACID 1 MG TABLET PO SCH (08:19)
[2022-02-10] MEDS: ENOXAPARIN 40 MG/0.4 ML SQ SCH (08:19)
[2022-02-10] MEDS: ASPIRIN EC 81 MG TAB PO SCH (08:19)
[2022-02-10 08:37] VITALS: O2SAT 98
[2022-02-10] MEDS ORDERED: POTASSIUM CL SA 10 MEQ TAB PO ONE (09:00)
--- NOTE | 2022-02-10 15:28 | P.DS ---
Admission Date: 02/08/22 Discharge Date: 02/10/22 Primary Care Provider: Dr. Novak Disposition: ROUTINE DISCHARGE Discharge Condition: FAIR Reason for Admission: Paresthesias, dizziness Consultations: Neurology- Dr. Parish Brief History of Present Illness: 76-year-old male with history of hypertension, gout presents to the emergency department for numbness/tingling of the right upper and lower extremity. Patient reported the numbness/tingling extended up his right forearm. Patient was initially evaluated in the emergency department with CT without contrast of the head which was negative for any acute findings he then had CTA of the head with no significant flow abnormalities. He also had MRI/MRA of the head which was negative for acute CVA or other acute intracranial process no pathologic postcontrast enhancement suspected. Chest x-ray was obtained which was negative carotid Doppler with mild hard plaque in both carotid bulbs no evidence of hemodynamic significant stenosis. He reported intermittent dizziness and vertigo associated with nausea and diaphoresis. There was concern for CVA. Patient was hospitalized for further management. Hospital Course: Diagnosis Paresthesias of the right upper and lower extremities/dizziness vertigo Hypertension h/o multiple left eye procedures Patient placed under observation on the medical floor. CT head, angio, MRI all negative carotid negative His dizziness and vertigo are likely secondary to benign positional vertigo given his prior history. MRI c spine showed C5-C6 spondylosis with mild central canal stenosis. His paresthesia likely related to the spondylosis. Seen by neurology who recommended scopolamine patch for the vertigo, C-spine traction for the paresthesia. Seen by PT and patient ambulated without assistive device. PT recommend outpatient rehab. Patient stated he is not keen on going to outpatient rehab and declining it. Clinically stable for discharge. Vital Signs/Physical Exam: Temp Pulse Resp BP Pulse Ox 97.8 F 56 18 159/76 H 94 02/10/22 12:00 02/10/22 12:00 02/10/22 12:00 02/10/22 12:00 02/10/22 12:00 General: Alert, In no apparent distress, Oriented x3 HEENT: PERRLA, Mucous membr. moist/pink, EOMI Neck: JVD not distended Respiratory: Clear to auscultation bilaterally, Normal air movement Cardiovascular: Regular rate/rhythm, Normal S1 S2 Gastrointestinal: Soft and benign, Non-distended, No tenderness Musculoskeletal: No swelling Integumentary: No rashes Neurological: Normal strength at 5/5 x4 extr, Cranial nerves 3-12 intact Laboratory Data at Discharge: WBC 9.1 K/uL (4.3-10.9) 02/09/22 03:34 Hgb 14.6 g/dL (13.6-17.9) 02/09/22 03:34 Hct 42.4 % (39.6-49.0) 02/09/22 03:34 Plt Count 161 K/uL (152-406) 02/09/22 03:34 Sodium 139 mmol/L (136-145) 02/10/22 03:39 Potassium 3.7 mmol/L (3.5-5.1) 02/10/22 03:39 BUN 12 mg/dL (7-18) 02/10/22 03:39 Creatinine 1.02 mg/dL (0.55-1.3) 02/10/22 03:39 Glucose 88 mg/dL (74-106) 02/10/22 03:39 Magnesium 2.1 mg/dL (1.8-2.4) 02/08/22 21:22 Total Bilirubin 1.4 mg/dL (0.2-1.0) H 02/09/22 03:34 AST 15 U/L (15-37) 02/09/22 03:34 ALT 24 U/L (12-78) 02/09/22 03:34 Alkaline Phosphatase 74 U/L (45-117) 02/09/22 03:34 Triglycerides 98 mg/dL (<150) 02/09/22 03:34 Cholesterol 155 mg/dL (<200) 02/09/22 03:34 HDL Cholesterol 44 mg/dL (40-60) 02/09/22 03:34 Cholesterol/HDL Ratio 3.52 02/09/22 03:34 Home Medications: Allopurinol 1 tab PO DAILY 02/09/22 Multivitamin/Iron/Folic Acid [Centrum Adults Tablet] 1 tab PO DAILY 02/09/22 Nebivolol HCl 1 tab PO DAILY 02/09/22 Pravastatin Sodium 20 mg PO DAILY 02/09/22 Ubidecarenone [Coenzyme Q10] 1 cap PO DAILY 02/09/22 Valsartan 1 tab PO DAILY 02/09/22 Scopolamine Hydrobromide [Transderm-Scop*] 1 pat TD Q3D@1500 #3 patch 02/10/22 New Medications: Scopolamine Hydrobromide [Transderm-Scop*] 1 pat TD Q3D@1500 #3 patch Diet: AHA Activity: Fall precautions Followup: Unknown,U [Primary Care Provider] - 1-2 Weeks
[2022-02-10 16:13] VITALS: BP 148/74; TEMP 98
== END 2022-02-10 16:55 | disposition home or self-care (01) ==
LOC: ER 19:39 → ERHOLD 21:53 → 2ND 02-09 00:17
PROVIDERS: ADMIT Hospitalist; ATTEND Internal Medicine
DX: R20.2 Paresthesia of skin (principal); R42 Dizziness and giddiness; I10 Essential (primary) hypertension; M47.22 Other spondylosis with radiculopathy, cervical region; M48.02 Spinal stenosis, cervical region; M10.9 Gout, unspecified; R53.1 Weakness; Z20.822 Contact with and (suspected) exposure to COVID-19; Z79.82 Long term (current) use of aspirin; Z90.49 Acquired absence of other specified parts of digestive tract; Z82.49 Family history of ischemic heart disease and other diseases of the circulatory system; Z80.9 Family history of malignant neoplasm, unspecified
CPT/HCPCS: 96361; 93005; 85025 ×2; 80048 ×2; 36415 ×2; 83735; 80061; 80076; 84484; 80053; 83880; 71045; 93880; 72141; 97116; 97161; 96374; 99285; U0003; J1650 ×2; G0378 ×3; 81003; 81015